=== PATIENT | male | born 1990 | race Caucasian/White ===

== ENCOUNTER 2024-11-04 20:40 | Emergency (ER) | payer BC ==
[~2024-11-04] VITALS: Ht 185.4 cm; Wt 90.7 kg
[2024-11-04] MEDS ORDERED: PREDNISONE20 M1 PO (21:04)
[2024-11-04] MEDS ORDERED: Water, Sterile 10 ML VIAL ONE (21:29)
== END 2024-11-04 21:13 | disposition home or self-care (01) ==
LOC: ED 20:40
DX: L23.7 Allergic contact dermatitis due to plants, except food (principal)